=== PATIENT | male | born 1970 | race Caucasian/White ===

== ENCOUNTER 2023-09-14 10:38 | Outpatient (CLI) | payer OTHER ==
[2023-09-14 12:14] LABS: Bilirubin Neg (Negative); Blood, Urine Negative (Negative); Clarity Clear (Clear); Glucose, Urine (Dipstick) Normal (Negative); Ketone, Urine Negative (Negative); Leukocyte Negative (Negative); Nitrite Negative (Negative); Protein, Urine (Dipstick) Negative (Neg-Trace); Specific Gravity, Urine 1.005 (1.005-1.030); Urobilinogen Normal mg/dL (Less than 2)
[2023-09-14 12:21] LABS: Bacteria/HPF None Seen HPF (None Seen); RBC/HPF 0-3 HPF (0-3); Squamous Epithelial 0-3 HPF (0-3); WBC/HPF None Seen HPF (0-3)
[2023-09-14 12:22] LABS: Hematocrit 43.4 % (38.8-50.0); Mean Corpuscular HGB CONC 34.6 g/dL (32.0-36.0); Mean Corpuscular Hemoglobin 30.2 pg (27.0-33.0); Mean Corpuscular Volume 87.5 fl (81.2-95.1); Platelet Count 230 10x3/uL (150-450); RBC Distribution Width 13.7 % (11.5-14.5); Red Blood Cell (RBC) Count 4.96 10x6/uL (4.32-5.72); White Blood Cell (WBC) Count 6.1 10x3/uL (3.5-10.5)
[2023-09-14 12:27] LABS: PTT 27.6 sec (22.0-33.0); Prothrombin Time 10.4 sec (9.5-12.1)
[2023-09-14 12:30] LABS: Anion Gap 12 mmol/L (10-20); BUN (Urea Nitrogen) 14 mg/dL (8.4-25.7); Calc. Creatinine Clearance 0 mL/min (70-130); Calcium 9.6 mg/dL (7.8-10.44); Carbon Dioxide 27 mmol/L (22-29); Chloride 105 mmol/L (98-107); Estimated GFR 83; Glucose 83 mg/dL (70-105); Potassium 4.5 mmol/L (3.5-5.1); Sodium 139 mmol/L (136-145)
== END 2023-09-14 10:39 | disposition home or self-care (01) ==
LOC: LABBT 10:38
PROVIDERS: ATTEND Urology
DX: Z01.818 Encounter for other preprocedural examination (principal); N28.89 Other specified disorders of kidney and ureter
CPT/HCPCS: 71046; 80048; 81001; 85027; 85610; 85730; 86850; 86900; 86901; 87086; 93005; 93010

== ENCOUNTER 2023-09-14 11:00 | Inpatient (IN) | payer OTHER ==
[2023-09-22] MEDS ORDERED: Fentanyl 250 MCG/5 ML VIAL ONE (06:34)
[2023-09-22] MEDS ORDERED: Bupivacaine 0.25% HCL 30 ML VIAL ONE (06:35)
[2023-09-22] MEDS ORDERED: Ondansetron PF 4 MG/2 ML Vial ONE ×2 (06:38→16:31)
[2023-09-22] MEDS ORDERED: Rocuronium Bromide 10 MG/ML (10ML VIAL) ONE (06:38)
[2023-09-22] MEDS ORDERED: Lidocaine 1% PF 5 ML VIAL ONE (06:38)
[2023-09-22] MEDS ORDERED: Dexamethasone 4 mg/ml Vial ONE (06:38)
[2023-09-22] MEDS ORDERED: PROPOFOL 20 ML ONE (06:38)
[2023-09-22] MEDS ORDERED: Famotidine/PF 20 mg/2ml Vial ONE (06:53)
[2023-09-22] MEDS ORDERED: Scopolamine 1 mg/72 hour Patch ONE (06:53)
[2023-09-22] MEDS ORDERED: LevoFLOXacin D5W 500 mg (100 mL) BAG ONE (06:53)
[2023-09-22] MEDS ORDERED: fentaNYL 50 mcg/mL 1 mL Vial ONE (07:13)
[2023-09-22] MEDS ORDERED: Midazolam HCl 2 mg/2 ml Vial ONE (07:13)
[2023-09-22] MEDS ORDERED: CEFAZOLIN 2 GM VIAL ONE (07:23)
[2023-09-22] MEDS ORDERED: Sodium Chloride 0.9% 100 ML ONE ×2 (07:23→15:34)
[2023-09-22] MEDS ORDERED: Lidocaine 1.5% w/Epi 1:200K 30 ML VIAL (Epid Use) ONE (07:40)
[2023-09-22] MEDS ORDERED: PHENYLEPHRINE-NS 100 MCG/ML 10 ML SYRINGE ONE (08:28)
[2023-09-22] MEDS ORDERED: Naloxone HCl 0.4 mg/ml Vial IVP PRN (08:30)
[2023-09-22] MEDS ORDERED: Bupivacaine 0.25% 10 ML VIAL EPIDURAL PRN (08:30)
[2023-09-22] MEDS ORDERED: diphenhydrAMINE 25 MG CAP PO PRN (08:30)
[2023-09-22] MEDS ORDERED: Zolpidem Tartrate 5 MG TAB PO PRN (08:30)
[2023-09-22] MEDS ORDERED: traMADol HCl 50 MG TAB PO PRN ×2 (08:30)
[2023-09-22] MEDS ORDERED: Moisturizing Cream (Eucerin) 113 GM JAR TOP PRN (08:30)
[2023-09-22] MEDS ORDERED: Naloxone HCl 0.4 mg/ml Vial IV PRN (08:30)
[2023-09-22] MEDS ORDERED: Promethazine HCl 25 MG SUPP PR PRN (08:30)
[2023-09-22] MEDS ORDERED: Promethazine HCl 25 MG/ML VIAL IM PRN (08:30)
[2023-09-22] MEDS ORDERED: diphenhydrAMINE 50 MG/ML VIAL IM PRN (08:30)
[2023-09-22] MEDS ORDERED: Albumin 5% 250 ML ONE (10:38)
[2023-09-22] MEDS ORDERED: SUGAMMADEX SODIUM 200 MG/2 ML VIAL ONE (10:40)
[2023-09-22] MEDS ORDERED: hydrALAZINE 20 MG/ML VIAL SLOW IVP PRN (12:08)
[2023-09-22] MEDS ORDERED: Bisacodyl 10 MG SUPP PR PRN (12:08)
[2023-09-22] MEDS ORDERED: Mag-Al 1200 mg/1200 mg/30 ML UDCUP PO PRN (12:08)
[2023-09-22 12:34] LABS: Hematocrit 41.8 % (42.0-52.0); Hemoglobin 14.4 g/dL (14.0-18.0); Mean Corpuscular HGB CONC 34.4 g/dL (32.0-36.0); Mean Corpuscular Hemoglobin 30.3 pg (27.0-31.0); Mean Platelet Volume 9.8 fL (7.4-10.4); Platelet Count 219 10x3/uL (130-400); RBC Distribution Width 13.2 % (11.5-14.5); Red Blood Cell (RBC) Count 4.75 mill/uL (4.70-6.10); White Blood Cell (WBC) Count 14.9 10x3/uL (4.8-10.8)
[2023-09-22 12:58] LABS: Anion Gap 12 mmol/L (10-20); Carbon Dioxide 21 mmol/L (22-29); Chloride 108 mmol/L (98-107); Potassium 4.6 mmol/L (3.5-5.1); Sodium 136 mmol/L (136-145)
[2023-09-22 12:59] LABS: BUN (Urea Nitrogen) 14 mg/dL (8.4-25.7); Calc. Creatinine Clearance 138 mL/min (70-130); Calcium 8.8 mg/dL (7.8-10.44); Estimated GFR 87; Glucose 135 mg/dL (70-105)
[2023-09-22] MEDS ORDERED: diphenhydrAMINE 50 MG/ML VIAL ONE ×2 (13:05→16:06)
[2023-09-22] MEDS: Sodium Chloride 0.9% 1,000 ML IV SCH (13:38)
[2023-09-22] MEDS ORDERED: hydrALAZINE 20 MG/ML VIAL ONE (14:32)
[2023-09-22] MEDS ORDERED: CEFAZOLIN 1 GM VIAL ONE (15:34)
[2023-09-22] MEDS: CEFAZOLIN 1 GM in Sodium Chloride 0.9% 100 ML IVPB SCH (15:58)
[2023-09-22] MEDS: diphenhydrAMINE 50 MG/ML VIAL IVP PRN ×2 (16:09→18:52)
[2023-09-22] MEDS: Ondansetron PF 4 MG/2 ML Vial IVP PRN (16:33)
[2023-09-22] MEDS ORDERED: CEFAZOLIN 2 GM in Sodium Chloride 0.9% 100 ML IVPB SCH (17:45)
[2023-09-22] MEDS ORDERED: LevoFLOXacin 500 mg/D5W 500 MG in Premix 1 BAG IVPB SCH (17:45)
[2023-09-22] MEDS: Docusate 100 MG CAP PO SCH (20:17)
[2023-09-23] MEDS: CEFAZOLIN 1 GM in Sodium Chloride 0.9% 100 ML IVPB SCH ×2 (00:27→09:05)
[2023-09-23] MEDS: Sodium Chloride 0.9% 1,000 ML IV SCH ×2 (00:40→13:19)
[2023-09-23] MEDS: Ondansetron PF 4 MG/2 ML Vial IVP PRN (01:15)
[2023-09-23 03:34] LABS: #Monocytes 1.7 thou/uL (0.11-0.59); #Neutrophils 10.2 thou/uL (1.40-6.50); %Basophils 0.2 % (0.0-1.0); %Lymphocytes 4.4 % (21.0-51.0); %Monocytes 13.6 % (0.0-10.0); %Neutrophils 81.3 % (42.0-75.0); Hematocrit 38.9 % (42.0-52.0); Hemoglobin 13.2 g/dL (14.0-18.0); Mean Corpuscular HGB CONC 33.9 g/dL (32.0-36.0); Mean Corpuscular Hemoglobin 30.2 pg (27.0-31.0); Mean Platelet Volume 9.8 fL (7.4-10.4); Platelet Count 217 10x3/uL (130-400); RBC Distribution Width 13.6 % (11.5-14.5); Red Blood Cell (RBC) Count 4.37 mill/uL (4.70-6.10); White Blood Cell (WBC) Count 12.5 10x3/uL (4.8-10.8)
[2023-09-23] MEDS: FENTANYL 500 MCG/10 ML VIAL 500 MCG, Bupivacaine 0.75% 10 ML in Sodium Chloride 0.9% 80 ML EPIDURAL SCH ×2 (03:58→20:55)
[2023-09-23 05:46] LABS: Anion Gap 14 mmol/L (10-20); BUN (Urea Nitrogen) 14 mg/dL (8.4-25.7); Calc. Creatinine Clearance 93 mL/min (70-130); Calcium 8.5 mg/dL (7.8-10.44); Carbon Dioxide 21 mmol/L (22-29); Chloride 104 mmol/L (98-107); Estimated GFR 53; Glucose 97 mg/dL (70-105); Sodium 135 mmol/L (136-145)
[2023-09-23] MEDS: Polyethylene Glycol 3350 17 GM Packet PO SCH (09:10)
[2023-09-23] MEDS: Docusate 100 MG CAP PO SCH ×2 (09:10→21:12)
[2023-09-23] MEDS: diphenhydrAMINE 50 MG/ML VIAL IVP PRN (09:41)
[2023-09-23 14:10] VITALS: BMI 33.0
[2023-09-23] MEDS ORDERED: Polyethylene Glycol 3350 17 GM Packet PO SCH (19:45)
[2023-09-24 05:03] LABS: #Monocytes 1.5 thou/uL (0.11-0.59); #Neutrophils 9.6 thou/uL (1.40-6.50); %Basophils 0.2 % (0.0-1.0); %Eosinophils 0.3 % (0.0-10.0); %Lymphocytes 7.8 % (21.0-51.0); %Monocytes 12.5 % (0.0-10.0); %Neutrophils 78.8 % (42.0-75.0); Hematocrit 39.6 % (42.0-52.0); Hemoglobin 13.6 g/dL (14.0-18.0); Mean Corpuscular HGB CONC 34.3 g/dL (32.0-36.0); Mean Corpuscular Hemoglobin 30.4 pg (27.0-31.0); Mean Corpuscular Volume 88.6 fl (78.0-98.0); Mean Platelet Volume 9.8 fL (7.4-10.4); Platelet Count 189 10x3/uL (130-400); RBC Distribution Width 13.5 % (11.5-14.5); Red Blood Cell (RBC) Count 4.47 mill/uL (4.70-6.10); White Blood Cell (WBC) Count 12.1 10x3/uL (4.8-10.8)
[2023-09-24 05:25] LABS: Anion Gap 5 mmol/L (10-20); BUN (Urea Nitrogen) 15 mg/dL (8.4-25.7); Calc. Creatinine Clearance 90 mL/min (70-130); Calcium 8.8 mg/dL (7.8-10.44); Carbon Dioxide 30 mmol/L (22-29); Chloride 102 mmol/L (98-107); Estimated GFR 50; Glucose 104 mg/dL (70-105); Potassium 4.1 mmol/L (3.5-5.1); Sodium 133 mmol/L (136-145)
[2023-09-24] MEDS: Sodium Chloride 0.9% 1,000 ML IV SCH ×3 (06:55→20:10)
[2023-09-24] MEDS: Docusate 100 MG CAP PO SCH ×2 (08:31→20:10)
[2023-09-24] MEDS: Polyethylene Glycol 3350 17 GM Packet PO SCH (08:31)
[2023-09-24] MEDS: FENTANYL 500 MCG/10 ML VIAL 500 MCG, Bupivacaine 0.75% 10 ML in Sodium Chloride 0.9% 80 ML EPIDURAL SCH (13:40)
[2023-09-24] MEDS: Heparin 5,000 UNITS/ML VIAL SC SCH (20:11)
[2023-09-25 03:32] LABS: #Eosinphils 0.2 thou/uL (0.0-0.7); #Monocytes 1.4 thou/uL (0.11-0.59); #Neutrophils 7.5 thou/uL (1.40-6.50); %Basophils 0.4 % (0.0-1.0); %Eosinophils 1.4 % (0.0-10.0); %Lymphocytes 12.1 % (21.0-51.0); %Monocytes 13.1 % (0.0-10.0); %Neutrophils 72.6 % (42.0-75.0); Hematocrit 39.4 % (42.0-52.0); Hemoglobin 13.6 g/dL (14.0-18.0); Mean Corpuscular HGB CONC 34.5 g/dL (32.0-36.0); Mean Corpuscular Hemoglobin 30.1 pg (27.0-31.0); Mean Corpuscular Volume 87.2 fl (78.0-98.0); Mean Platelet Volume 9.7 fL (7.4-10.4); Platelet Count 200 10x3/uL (130-400); RBC Distribution Width 13.2 % (11.5-14.5); Red Blood Cell (RBC) Count 4.52 mill/uL (4.70-6.10); White Blood Cell (WBC) Count 10.4 10x3/uL (4.8-10.8)
[2023-09-25 03:54] LABS: Anion Gap 13 mmol/L (10-20); BUN (Urea Nitrogen) 16 mg/dL (8.4-25.7); Calc. Creatinine Clearance 108 mL/min (70-130); Calcium 8.8 mg/dL (7.8-10.44); Carbon Dioxide 24 mmol/L (22-29); Chloride 102 mmol/L (98-107); Estimated GFR 63; Glucose 81 mg/dL (70-105); Potassium 4.1 mmol/L (3.5-5.1); Sodium 135 mmol/L (136-145)
[2023-09-25] MEDS: FENTANYL 500 MCG/10 ML VIAL 500 MCG, Bupivacaine 0.75% 10 ML in Sodium Chloride 0.9% 80 ML EPIDURAL SCH (07:36)
[2023-09-25] MEDS: Polyethylene Glycol 3350 17 GM Packet PO SCH (09:23)
[2023-09-25] MEDS: Docusate 100 MG CAP PO SCH ×2 (09:23→20:06)
[2023-09-25] MEDS: Heparin 5,000 UNITS/ML VIAL SC SCH ×2 (09:42→20:05)
[2023-09-25] MEDS: HYDROcodone/Acetaminophen 5/325 mg Tablet PO PRN ×3 (09:47→20:12)
[2023-09-25] MEDS ORDERED: Morphine 2 MG/ML VIAL SLOW IVP PRN (13:10)
[2023-09-25] MEDS ORDERED: FLU VACC QS2023-24(6MOS UP)/PF 60 MCG/0.5 ML SYRINGE IM ONE (17:45)
[2023-09-26] MEDS: HYDROcodone/Acetaminophen 5/325 mg Tablet PO PRN ×4 (00:08→14:06)
[2023-09-26 04:39] LABS: #Eosinphils 0.3 thou/uL (0.0-0.7); #Monocytes 1.1 thou/uL (0.11-0.59); #Neutrophils 5.8 thou/uL (1.40-6.50); %Basophils 0.2 % (0.0-1.0); %Eosinophils 3.8 % (0.0-10.0); %Lymphocytes 11.6 % (21.0-51.0); %Monocytes 12.8 % (0.0-10.0); Hematocrit 37.7 % (42.0-52.0); Hemoglobin 13.1 g/dL (14.0-18.0); Mean Corpuscular HGB CONC 34.7 g/dL (32.0-36.0); Mean Corpuscular Hemoglobin 29.8 pg (27.0-31.0); Mean Corpuscular Volume 85.9 fl (78.0-98.0); Mean Platelet Volume 9.9 fL (7.4-10.4); Platelet Count 228 10x3/uL (130-400); RBC Distribution Width 13.1 % (11.5-14.5); Red Blood Cell (RBC) Count 4.39 mill/uL (4.70-6.10); White Blood Cell (WBC) Count 8.2 10x3/uL (4.8-10.8)
[2023-09-26 05:04] LABS: Anion Gap 11 mmol/L (10-20); BUN (Urea Nitrogen) 17 mg/dL (8.4-25.7); Calc. Creatinine Clearance 101 mL/min (70-130); Carbon Dioxide 27 mmol/L (22-29); Chloride 102 mmol/L (98-107); Estimated GFR 63; Glucose 85 mg/dL (70-105); Potassium 3.8 mmol/L (3.5-5.1); Sodium 136 mmol/L (136-145)
[2023-09-26] MEDS: Heparin 5,000 UNITS/ML VIAL SC SCH (08:11)
[2023-09-26] MEDS: Polyethylene Glycol 3350 17 GM Packet PO SCH (08:11)
[2023-09-26] MEDS: Docusate 100 MG CAP PO SCH (08:11)
[2023-09-26] MEDS: Ondansetron PF 4 MG/2 ML Vial IVP PRN (08:28)
[2023-09-26] MEDS ORDERED: Tamsulosin HCl 0.4 MG CAP PO SCH (09:00)
[2023-09-26 11:37] VITALS: BP 128/84; TEMP 97.7
== END 2023-09-26 14:20 | disposition home or self-care (01) | DRG 657 ==
LOC: SURG A 09-22 06:28 → EDSTATUS 09-22 11:00 → CCU 09-22 17:14 → SURG B 09-25 15:29
PROVIDERS: ADMIT Urology; ATTEND Urology
PROC: 0TT00ZZ Resection of Right Kidney, Open Approach (ICD-10-PCS; principal; 2023-09-22)
PROC: 3E033XZ Introduction of Vasopressor into Peripheral Vein, Percutaneous Approach (ICD-10-PCS; 2023-09-22)
PROC: 30233J1 Transfusion of Nonautologous Serum Albumin into Peripheral Vein, Percutaneous Approach (ICD-10-PCS; 2023-09-22)
DX: C64.1 Malignant neoplasm of right kidney, except renal pelvis (principal); E87.20 Acidosis, unspecified; N17.9 Acute kidney failure, unspecified; K21.9 Gastro-esophageal reflux disease without esophagitis
CPT/HCPCS: 36415; 80048; 85025; 85027; 86850; 86900; 86901; 88307; A4649; C1713; C1776; J0360; J0665; J0690; J1100; J1200; J1644; J1956; J2001; J2250; J2405; J2704; J3010; J3490; J7050; P9045; S0028

== ENCOUNTER 2024-09-07 07:23 | Outpatient (CLI) | payer OTHER ==
[2024-09-07] MEDS ORDERED: Iopamidol 370 76% 100 ML VIAL ONE (14:43)
== END 2024-09-07 07:24 | disposition home or self-care (01) ==
LOC: BICCT 07:23
PROVIDERS: ATTEND Urology
DX: C64.1 Malignant neoplasm of right kidney, except renal pelvis (principal); K44.9 Diaphragmatic hernia without obstruction or gangrene; Z90.5 Acquired absence of kidney
CPT/HCPCS: 36415; 71046; 74160; 82565; Q9967